=== PATIENT | male | born 1965 | race Two or more races ===

== ENCOUNTER 2018-10-05 16:10 | Observation (INO) | payer OTHER ==
--- NOTE | 2018-10-05 16:56 | EDPHY ---
H & P Time Seen by Provider: 10/05/18 16:33 HPI/ROS: HPI Right hand injury. 53-year-old male by private vehicle. He is right-hand dominant. 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 He was picked caring a large piece of plywood in his right hand. He slipped on a slippery surface. He fell to the ground with his fingers which were underneath the plywood and holding the plywood impacting the ground and getting crushed by the piece of plywood that he was caring. He presents to the emergency department from the urgent care where he was seen initially. He sustained what appeared to be open fractures and multiple lacerations to digits 4 and 5. He states that he last had a tetanus shot 3 years ago. He denies any new loss of sensation distally to the injuries. He complains of isolated pain to these fingers. No other complaint. Last meal was at 12 noon. ROS: Constitutional: No fever, no chills. No weakness. Musculoskeletal: No back pain. No neck pain. As above. Skin: Lacerations to right hand. Neurological: No headache. No focal weakness or altered sensation. Past medical history: No prescription medications. No significant past medical history. Social history: Currently here by himself. 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 Drinks alcohol occasionally. Nonsmoker. Physical Exam: General Appearance: Alert, no distress. This patient is responding to questions appropriately and in full sentences. This patient appears well- hydrated and well-nourished. Head: Normocephalic atraumatic. Eyes: Pupils equal and round no pallor or injection. No lid edema, erythema or injection. Right hand exam: Significant for what appeared to be open fractures involving the middle and distal phalanx of both the 4th and 5th digits. The 4th digit has a large full-thickness radial aspect laceration running from the DIP joint up through the radial aspect nail bed. The 5th digit has a full-thickness laceration ulnar aspect from the tip running down to the DIP joint. Neurological: Motor sensory function is grossly intact. Cranial nerves are normal. Gait is normal. Skin: Warm and dry, no rashes. Musculoskeletal: Neck is supple and nontender. Extremities are symmetrical except noted. All joints range without pain or impingement except noted. Psychiatric: No agitation. No depression. Database: EKG: Imaging: Right hand x-ray series: Significant for comminuted fracture of the middle phalanx of the 5th finger with intra-articular involvement and comminuted fracture of the distal phalanx of the 4th finger. Interpreted by me. Procedures: Emergency department course: Triage vital signs reviewed and are normal. IV was established in triage. Digital block performed on right hand digits 4. And 5 using 0.5% Sensorcaine without epinephrine. Excellent anesthesia was obtained distally. Patient will be given IV Ancef secondary to open fractures. 5:30 p.m., the patient was re-evaluated, his wounds have been thoroughly irrigated with copious amounts of normal saline. X-rays are being obtained currently. 6:00 p.m., patient re-evaluated. He has been given 0.5 mg of IV hydromorphone. His pain is well controlled. Waiting for call back from Orthopedic Hand Dr. Sudeep Ware. 6:50 p.m., spoke with on-call orthopedic hand surgeon Dr. Sudeep Ware. Case discussed in detail with him. He will take this patient to the OR shortly for operative management of his open finger fractures. 6:55 p.m., the patient was re-evaluated, pain is currently well controlled. Plan for operative management under the care of Dr. Sudeep Ware discussed with him and his coworkers. All of his questions were answered. His remaining emergency department course under my care has been uneventful. He was transferred to preop in stable condition. Differential Diagnosis: The differential diagnosis on this patient includes but is not limited to crush injury to right hand. This represents a partial list of diagnoses considered. These considerations are based on history, physical exam, past history, reassessment and diagnostic testing. Smoking Status: Never smoked Constitutional: Initial Vital Signs Temperature (C) 36.9 C 10/05/18 16:35 Heart Rate 74 10/05/18 16:35 Respiratory Rate 16 10/05/18 16:35 Blood Pressure 127/91 H 10/05/18 16:35 O2 Sat (%) 95 10/05/18 16:35 O2 Delivery Mode Room Air Allergies/Adverse Reactions: No Known Allergies Allergy (Unverified 10/05/18 16:31) Home Medications: Medication Instructions Recorded NK [No Known Home Meds] 10/05/18 Medical Decision Making - Diagnostics Imaging Results: Imaging Impressions Hand X-Ray 10/05/18 16:32 Impression: Comminuted fractures of the middle phalanx of the fifth finger and the distal phalanx of the fourth finger. Advanced first CMC osteoarthritis, with less severe degenerative change at the third MCP joint. - Data Points Laboratory Results: 10/05/18 10/05/18 16:55 16:55 WBC Pending RBC Pending Hgb Pending Hct Pending MCV Pending MCH Pending MCHC Pending RDW Pending Plt Count Pending MPV Pending Neut % (Auto) Pending Lymph % (Auto) Pending Linn % (Auto) Pending Eos % (Auto) Pending Baso % (Auto) Pending Nucleat RBC Rel Count Pending Absolute Neuts (auto) Pending Absolute Lymphs (auto) Pending Absolute Monos (auto) Pending Absolute Eos (auto) Pending Absolute Basos (auto) Pending Absolute Nucleated RBC Pending Immature Gran % Pending Immature Gran # Pending Sodium Pending Potassium Pending Chloride Pending Carbon Dioxide Pending Anion Gap Pending BUN Pending Creatinine Pending Estimated GFR Pending Glucose Pending Calcium Pending Medications Given: Discontinued Medications Hydromorphone HCl (Dilaudid) 0.5 mg IVP EDNOW ONE Stop: 10/05/18 17:44 Last Admin: 10/05/18 17:45 Dose: 0.5 mg Cefazolin Sodium/Dextrose (Ancef) 100 mls @ 200 mls/hr IV EDNOW ONE PRN Reason: Protocol Stop: 10/05/18 17:57 Last Admin: 10/05/18 17:36 Dose: 100 mls Departure - Departure Disposition: [facility] Inpatient Acute Clinical Impression: Injury of right hand, Open fracture of finger of right hand Referrals: NONE *PRIMARY CARE P,. [Primary Care Provider] - As per Instructions
[2018-10-05] MEDS ORDERED: CEFAZOLIN 2 GM/DEXTROSE/100 ML BAG IV ONE (16:59)
[2018-10-05] MEDS ORDERED: ceFAZolin 2 GM/DEXTROSE 100 ML IV ONE (17:28)
[2018-10-05] MEDS ORDERED: HYDROmorphONE/DILAUDID 1 MG/ML INJ ONE (17:41)
[2018-10-05] MEDS ORDERED: HYDROmorphONE/DILAUDID 2 MG/ML INJ IVP ONE ×2 (17:43→19:09)
[2018-10-05 18:56] LABS: PLATELET COUNT 304 10^3/uL (150-400)
[2018-10-05] MEDS ORDERED: BUPIVACAINE 0.5% 30 ML SDV ONE (19:26)
[2018-10-05] MEDS ORDERED: MIDAZOLAM 2 MG/2 ML VIAL ONE (19:40)
[2018-10-05] MEDS ORDERED: PROPOFOL 200 MG/20 ML VIAL ONE (19:40)
[2018-10-05] MEDS ORDERED: fentaNYL 100 MCG/2 ML INJ ONE ×2 (19:40→21:44)
--- NOTE | 2018-10-05 19:49 | PDANEPAE ---
ANE History of Present Illness RIGHT HAND INJURY ANE Past Medical History - Cardiovascular History Hx Hypertension: No Hx Arrhythmias: No Hx Chest Pain: No Hx Coronary Artery / Peripheral Vascular Disease: No Hx CHF / Valvular Disease: No Hx Palpitations: No - Pulmonary History Hx COPD: No Hx Asthma/Reactive Airway Disease: No Hx Recent Upper Respiratory Infection: No Hx Oxygen in Use at Home: No Hx Sleep Apnea: No - Endocrine History Hx Diabetes: No Hypothyroid: No Hyperthyroid: No Obesity: no - Renal History Hx Renal Disorders: No - Liver History Hx Hepatic Disorders: No - Neurological & Psychiatric Hx Hx Neurological and Psychiatric Disorders: No - Cancer History Hx Cancer: No - Congenital Disorder History Hx Congenital Disorders: No - GI History GERD: no - Surgical History Prior Surgeries: APPY. TONSIL ANE Review of Systems Review of systems is: negative Review of Systems: ANE Patient History - Allergies Allergies/Adverse Reactions: No Known Allergies Allergy (Unverified 10/05/18 16:31) - Home Medications Home medications: home medication list seen and reviewed Home Medications: NK [No Known Home Meds] 10/05/18 [Last Taken Unknown] - NPO status NPO Status: no food or drink >8 hours NPO Since - Liquids (Date): 10/05/18 NPO Since - Liquids (Time): 12:00 NPO Since - Solids (Date): 10/05/18 NPO Since - Solids (Time): 12:00 - Anes Hx Anes Hx: no prior problems - Smoking Hx Smoking Status: Light smoker Marijuana use: No - Alcohol Use Alcohol Use: None ANE Labs/Vital Signs - Labs Result Diagrams: 10/05/18 16:55 10/05/18 16:55 - Vital Signs Blood Pressure: 142/82 Heart Rate: 70 Respiratory Rate: 14 O2 Sat (%): 95 ANE Physical Exam - Airway Neck exam: FROM Mallampati Score: Class 2 Mouth exam: normal dental/mouth exam - Pulmonary Pulmonary: no respiratory distress, clear to auscultation - Cardiovascular Cardiovascular: regular rate and rhythym, no murmur, rub, or gallop - ASA Status ASA Status: I, E ANE Anesthesia Plan Anesthesia Plan: general endotracheal anesthesia, GA w LMA
--- NOTE | 2018-10-05 19:55 | PDGENHP ---
History & Physical Chief Complaint: right hand injury History of Present Illness: crushed under plywood Pertinent Past, Social, Family History: see chart Relevant Physical Exam: bloody dressings to ring and small fingers. not unwrapped. also digital block placed in ed, no current sensation. xrays demonstrate comminuted fx to small finger mp, and ring finger dp Cardiorespiratory Assessment: good
[2018-10-05] MEDS ORDERED: KETOROLAC 30 MG/1 ML SDV ONE (20:44)
[2018-10-05] MEDS ORDERED: ONDANSETRON 4 MG/2 ML VIAL ONE (20:44)
[2018-10-05] MEDS ORDERED: DEXAMETHASONE 4 MG/ML VIAL ONE (20:44)
[2018-10-05] MEDS ORDERED: LIDOCAINE 2% 2 ML INJ ONE ×2 (20:45)
[2018-10-05] MEDS ORDERED: NALOXONE HCL 0.4 MG/ML INJ IVP PRN (21:29)
[2018-10-05] MEDS ORDERED: PROMETHAZINE HCL 25 MG/ML INJ IVP PRN (21:29)
--- NOTE | 2018-10-05 21:29 | POSTANESTH ---
Post Anesthetic Evaluation Cardiovascular Status: Normal, Stable Respiratory Status: Normal, Stable Level of Consciousness/Mental Status: Can Participate in Eval Pain Control: Adequate, Prn Tx Ordered Nausea/Vomiting Control: Adequate, Prn Tx Ordered Complications Possibly Related to Anesthesia: None Noted
[2018-10-05] MEDS ORDERED: ONDANSETRON 4 MG/2 ML VIAL IVP PRN (21:38)
--- NOTE | 2018-10-05 21:38 | POSTOPPROG ---
Post Op Note Date of Operation: 10/05/18 Surgeon: Sudeep Ware Grinder Outside Diameter: none Anesthesiologist: clayton Anesthesia: GET(General Endotracheal) Pre-op Diagnosis: open fx right small mp and ring dp fx Post-op Diagnosis: same Indication: same Procedure: i and d, perc pinning ring and small fingers open fxs Inf/Abcess present in the surg proc area at time of surgery?: No Depth: Deep Incisional (Fascial) EBL: Minimal
[2018-10-05] MEDS: fentaNYL 100 MCG/2 ML INJ IVP PRN ×2 (21:55→22:09)
[2018-10-05] MEDS: oxyCODONE IR 5 MG TAB PO PRN ×2 (22:59→23:32)
[2018-10-05] MEDS: ceFAZolin 2 GM/DEXTROSE 100 ML IV SCH (23:34)
[2018-10-06] MEDS: ceFAZolin 2 GM/DEXTROSE 100 ML IV SCH ×2 (01:20→08:57)
[2018-10-06] MEDS: KETOROLAC 15 MG/1 ML SDV IVP SCH ×3 (02:33→14:48)
[2018-10-06] MEDS: oxyCODONE IR 5 MG TAB PO PRN ×3 (04:07→14:49)
--- NOTE | 2018-10-06 06:53 | GCON ---
[f rep st] CONSULTATION DATE OF CONSULTATION: 10/05/2018 TIME: 1800 on 10/05/2018. This dictation was delayed as the dictation system was down. CHIEF COMPLAINT: Right hand injury. 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 He wa s carrying a large piece of plywood, tripped over a construction blanket and fell with the plywood st riking his ring and small fingers to the concrete. He had immediate bleeding and injury to the ring and small fingers. He was presented to the urgent care and then subsequently the emergency room and had open fractures of both the ring and small fingers. This was irrigated and numbed by the ER staff . I was consulted for further evaluation. He denies any other associated injuries. PAST MEDICAL HISTORY: None. PAST SURGICAL HISTORY: Had an appendectomy and skull injury with large laceration. MEDICATIONS: None. ALLERGIES: None. 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 He is right-hand dominant. Has moderate alcohol use. No nsmoker. Admits to smoking 2 to 3 cigarettes a week. OBJECTIVE: Is a healthy gentleman. He is pleasant and cooperative with the examination. Examinatio n of his right hand reveals bandages across the ring and small fingers. These were removed, which de monstrate oblique laceration over the volar surface of the ring finger at the distal interphalangeal joint and distal phalanx. The pulp was visible within this wound, and the digit is angulated approxi mately 40 degrees. There is clear crepitus and fracture noted in this area. Sensation is diminished given the digital block placed previously by emergency department physician. The small finger demon strates a stellate laceration over the volar and radial aspect. There was gross comminution through the middle phalanx. There is no other tenderness along the index, long or thumb digits. There is no sensation to the small finger from the previous digital block, as well, and there is no active pulsa tile bleeding currently. IMAGING: Radiographs demonstrate a comminuted fracture of the middle phalanx of the small finger wit h air extending to the fracture site. The ring finger demonstrates a comminuted fracture of the dist al phalanx with displacement of 100% and 40 degrees of angulation. IMPRESSION: Open fractures of his ring and small fingers, right hand. TREATMENT PLAN: I have recommended emergent irrigation and debridement and stabilization with percut aneous pins. I have discussed the comminution of his small finger middle phalanx, which is restricte d at the internal fixation, especially with loss of the surrounding soft tissue envelope. This may r equire secondary surgery. He will be admitted for IV antibiotics for 24 hours. /[id number]/MODL
--- NOTE | 2018-10-06 09:56 | SOAPPROG ---
SOAP Progress Note Assessment/Plan: Assessment: s/p io and d orif ring and small open phalanx fx Plan:d/c after 24 hours of abx f/u next wed [facility], call for appt seek attn for increasing pain, or other focal co 10/06/18 09:54 Subjective: pain no cp or sob Objective: Vital Signs Temp Pulse Resp BP Pulse Ox 36.6 C 64 16 101/64 94 10/06/18 08:00 10/06/18 08:00 10/06/18 08:00 10/06/18 08:00 10/06/18 08:00 10/05/18 10/06/18 10/07/18 05:59 05:59 05:59 Intake Total 1250 Output Total 20 Balance 1230 dressing intact pins intact no serrous drainage dressing clean ICD10 Worksheet Patient Problems: Problems Problem Status Onset Injury of right hand Acute Open fracture of finger of right hand Acute
--- NOTE | 2018-10-06 11:05 | ASMTCMCOM ---
CM Note CM Note Notes: Chart review for discharge planning: Patient is a 53 year old male admitted via [facility] ED arrived in private vehicle, referred to ED by urgent care. Patient presents with injury to R hand injuries & reports he slipped and fell while holding plywood crushing his hand. Patient underwent io and d ORIF ring and small open phalanx fracture. CM discussed with FLORENCIA Santana, patient to discharge home independent today with support. CM available to follow if any CM needs arise. Date Signed: 10/06/2018 11:05 AM Electronically Signed By:Lyubov Edwards
[2018-10-06 11:36] VITALS: BP 92/52
[2018-10-06] MEDS ORDERED: CEPHALEXIN 500 MG CAP PO SCH (12:00)
[2018-10-06] MEDS ORDERED: ceFAZolin 2 GM/DEXTROSE 100 ML IV ONE (16:00)
== END 2018-10-06 17:05 | disposition home or self-care (01) ==
LOC: OBSVTOIN 21:41 → INTOOBSV 21:41 → F3N 22:45
PROVIDERS: ADMIT Orthopaedic Surgery; ATTEND Orthopaedic Surgery
PROC: 0PST34Z Reposition Right Finger Phalanx with Internal Fixation Device, Percutaneous Approach (ICD-10-PCS; principal; 2018-10-05 19:45)
DX: S62.626B Displaced fracture of middle phalanx of right little finger, initial encounter for open fracture (principal); S62.634B Displaced fracture of distal phalanx of right ring finger, initial encounter for open fracture; W01.198A Fall on same level from slipping, tripping and stumbling with subsequent striking against other object, initial encounter; Y92.69 Other specified industrial and construction area as the place of occurrence of the external cause; Y99.0 Civilian activity done for income or pay; Z72.0 Tobacco use
CPT/HCPCS: 26727; 26756; 73130; G0378; C1713; J0690; J1100; J1170; J1885; J2250; J2270; J2405; J2704; J3010

== ENCOUNTER → 2018-11-07 | Outpatient (CLI) | payer OTHER | LOC: BMCIMAGING 13:18 | PROVIDERS: ATTEND Orthopaedic Surgery Hand Surgery | DX: S62.626B Displaced fracture of middle phalanx of right little finger, initial encounter for open fracture (principal) ==

== ENCOUNTER → 2018-11-21 | Outpatient (CLI) | payer OTHER | LOC: BMCIMAGING 14:48 | PROVIDERS: ATTEND Orthopaedic Surgery Hand Surgery | DX: S62.634D Displaced fracture of distal phalanx of right ring finger, subsequent encounter for fracture with routine healing (principal) ==